=== PATIENT | female | born 1965 | race Caucasian/White ===

== ENCOUNTER → 2017-03-19 | Outpatient (CLI) | payer OTHER ==
[~2017-03-19] MED LIST: ATV1 PO; COLE1TAB4 PO; EST1 PO; PANT40TA PO; ROPI0.5T15 PO; ROPI1TAB PO; SERT-234; SUCR1TAB PO
[2017-03-19 10:27] LABS: BASO % 1.1 %; BASO ABS # 0.07 K/uL (0-0.2); COMPLETE YES; EOS % 0.8 %; HEMATOCRIT 41.3 % (37-47); IG% 0.2 %; LYMPH % 31.2 %; LYMPH ABS # 1.98 K/uL (1.2-3.4); MEAN CELL VOLUME 91.6 fL (80-100); MEAN CORPUSCULAR HEMOGLOBIN 31.5 pg (25-34); MEAN CORPUSCULAR HGB CONC 34.4 g/dl (32-36); MEAN PLATELET VOLUME 9.5 fL (7.4-10.4); MONO % 5.5 %; NEUT % 61.2 %; PLATELET COUNT 273 K/uL (130-400); RED BLOOD COUNT 4.51 M/uL (4.2-5.4); WHITE BLOOD COUNT 6.34 K/uL (4.8-10.8)
[2017-03-19 10:35] LABS: BLOOD UREA NITROGEN 13 mg/dl (7-18); BUN/CREATININE RATIO 16.6 (10-20); CALCIUM 8.9 mg/dl (8.5-10.1); CARBON DIOXIDE 34 mmol/L (21-32); CHLORIDE 104 mmol/L (98-107); CREATININE 0.81 mg/dl (0.60-1.20); GLUCOSE 83 mg/dl (70-99); POTASSIUM 4.3 mmol/L (3.5-5.1); SODIUM 140 mmol/L (136-145)
[2017-03-19 10:46] LABS: ALB/GLOB RATIO 1.4 (0.9-2); ALKALINE PHOSPHATASE 44 U/L (45-117); ALT/SGPT 16 U/L (12-78); AST/SGOT 10 U/L (15-37); CHOLESTEROL 172 mg/dl (0-200); CHOLESTEROL/HDL RATIO 2.3; HDL CHOLESTEROL 74 mg/dl; LDL CHOLESTEROL CALCULATED 64 mg/dl; TRIGLYCERIDES 169 mg/dl (0-150); VERY LOW DENSITY LIPOPROT CALC 34 mg/dl
== END | disposition home or self-care (01) ==
LOC: C.LAB1850 08:54
PROVIDERS: ATTEND Family Medicine
DX: K52.9 Noninfective gastroenteritis and colitis, unspecified (principal); Z13.220 Encounter for screening for lipoid disorders; E53.8 Deficiency of other specified B group vitamins; E55.9 Vitamin D deficiency, unspecified; G25.81 Restless legs syndrome

== ENCOUNTER → 2017-03-24 | Outpatient (CLI) | payer OTHER ==
--- NOTE | 2017-03-25 09:18 | DIAGNOSTIC IMAGING REPORT ---
MRI OF THE LUMBAR SPINE WITHOUT CONTRAST CLINICAL HISTORY: Lumbar degenerative disc disease. Right-sided radiculopathy. COMPARISON STUDY: No previous studies for comparison. TECHNIQUE: Utilizing a 1.5 Annmarie magnet and dedicated coil, multiplanar, multiecho imaging of the lumbar spine was performed without IV contrast. FINDINGS: For purposes of numbering on this exam, the L5-S1 disc space is assigned to axial image 23 of 25. Alignment of lumbar spine is anatomic. Vertebral body heights are maintained. There is no intracanalicular mass or fluid collection. Paravertebral soft tissues are unremarkable. Conus terminates at the upper L1 level. There is no suspicious marrow replacement. L1-2: The central canal and the neural foramen are patent. L2-3: The central canal and neural foramen are patent. L3-4: The central canal and neural foramen are patent. L4-5: There is mild disc bulge with a left paracentral/foraminal annular tear. There is mild facet arthrosis. The central canal is patent. There is mild narrowing of both neural foramen. L5-S1: The central canal and neural from are patent. There is mild facet arthrosis. IMPRESSION: 1. Mild multilevel degenerative disc disease and facet arthrosis of the lumbar spine. Patent central canal. 2. Minimal disc bulge at L4-L5 with mild facet arthrosis. Mild narrowing of the bilateral neural foramen at this level. Electronically signed by: Zoran Emmanuel M.D. 03/24/2017 4:24 PM Dictated Date/Time: 03/24/2017 4:19 PM
== END | disposition home or self-care (01) ==
LOC: C.MRI 10:13
PROVIDERS: ATTEND Family Medicine
DX: M51.36 Other intervertebral disc degeneration, lumbar region (principal); M54.16 Radiculopathy, lumbar region